=== PATIENT | female | born 1980 | race Caucasian/White ===

== ENCOUNTER → 2020-09-21 15:56 | Outpatient (CLI) | payer BC, SELFPAY | PROVIDERS: PCP Family Medicine; Visit Provider Family Medicine | DX: Z20.828 Contact with and (suspected) exposure to other viral communicable diseases (principal); U07.1 COVID-19 | CPT/HCPCS: U0003 ==

== ENCOUNTER → 2020-11-26 07:51 | Outpatient (CLI) | payer BC, SELFPAY ==
--- NOTE | 2020-11-26 07:59 | MM_ITS ---
PROCEDURE: MM DIG SCREENING MAMM BI W/CAD Digital Breast Tomosynthesis Included CLINICAL INDICATION: SCREENING There is a history of breast cancer in the patient's maternal cousin. COMPARISON: This is a baseline screening exam, patient without complaints TECHNIQUE: Standard CC and MLO images and 3D Tomosynthesis was obtained. R2 CAD reviewed. FINDINGS: Moderate diffuse fibroglandular densities are seen throughout both breast and the findings are bilateral and symmetrical. There is no suspicious lesion in either breast and no suspicious microcalcifications. IMPRESSION: Moderate breast density with no suspicious lesions seen BI-RAD Category: 1 Negative FOLLOW-UP: 1YR 1 Year Follow-up (A letter has been sent to the patient regarding results of the study.) Dictated by: Dr. Fabian Robles MD 11/30/2020 12:36 Dr. Fabian Robles MD in [place] 11/30/2020 12:36
== END ==
PROVIDERS: PCP Family Medicine; Visit Provider Family Medicine
DX: Z12.31 Encounter for screening mammogram for malignant neoplasm of breast (principal); Z80.3 Family history of malignant neoplasm of breast
CPT/HCPCS: 77063; 77067

== ENCOUNTER → 2021-01-19 08:49 | Outpatient (CLI) | payer BC, SELFPAY ==
[2021-01-19 09:18] LABS: Basophils # 0.1 K/mm3 (0-0.2); Basophils % 0.6 % (0.1-2.0); Eosinophils # 0.2 K/mm3 (0.0-0.4); Eosinophils % 2.1 % (0.1-12.0); Hematocrit 40.8 % (37.0-47.0); Hemoglobin 13.2 g/dL (12.2-16.2); Lymphocytes # 3.3 K/mm3 (0.7-4.5); Lymphocytes % 31.9 % (10-50); Mean Corpuscular HGB Conc 32.2 g/dL (31.8-35.4); Mean Corpuscular Volume 80.7 fl (81-99); Mean Platelet Volume 7.9 fl (7.4-10.4); Monocytes # 0.4 K/mm3 (0.1-1.0); Monocytes % 4.3 % (1.7-9.3); Neutrophils # 6.3 K/mm3 (1.8-7.8); Neutrophils % 61.2 % (37.0-80.0); Platelet Count 307 K/mm3 (142-424); Red Blood Count 5.06 M/mm3 (4.20-5.40); Red Cell Distribution Width 13.5 % (11.5-17.5); White Blood Count 10.3 K/mm3 (4.8-10.8)
[2021-01-19 09:45] LABS: Benzodiazepines Screen,Urine Negative ng/ml (<200)
[2021-01-19 09:46] LABS: Amphetamine/Metha Screen,Urine Negative ng/ml (<1000); Chloride 106 mmol/L (98-107); Sodium 140 mmol/L (136-145)
[2021-01-19 09:47] LABS: Barbiturates Screen,Urine Negative ng/ml (<200); Cannabinoid Screen,Urine Negative ng/ml (<50); Potassium 4.2 mmoL/L (3.5-5.1)
[2021-01-19 09:48] LABS: Cocaine Screen,Urine Negative ng/ml (<300); Methadone Screen,Urine Negative ng/ml (<300)
[2021-01-19 09:49] LABS: Alanine Aminotransferase 20 U/L (12-78); Albumin Level 4.3 g/dl (3.5-5.0); Alkaline Phosphatase 95 U/L (38-126); Aspartate Amino Transferase 28 U/L (14-36); Bilirubin,Total 0.7 mg/dl (0.2-1.3); Blood Urea Nitrogen 9 mg/dl (7-17); Estimated Glomerular Filt Rate 92 ml/min (>60); GFR (African American) 112 ML/MIN (>60); HCG Qualitative, Serum Negative (Negative); Opiate Screen,Urine Negative ng/ml (<300)
[2021-01-19 09:50] LABS: Albumin/Globulin Ratio 1.5 (1.1-1.8); Anion Gap 12.2 mEq/L (5-15); Calcium 9.2 mg/dl (8.4-10.2); Carbon Dioxide 26 mmol/L (22.0-30.0); Globulin 2.8 g/dL (1.3-3.2); Glucose 106 mg/dl (74-100); Phencyclidine Screen,Urine Negative ng/ml (<25); Total Protein,Serum 7.1 g/dl (6.3-8.2)
[2021-01-19 10:09] LABS: Coronavirus 19 IgG Antibody Positive (Negative)
[2021-01-19 10:11] LABS: Coronavirus 19 IgM Antibody Positive (Negative)
== END ==
PROVIDERS: Visit Provider Obstetrics & Gynecology
DX: Z01.818 Encounter for other preprocedural examination (principal); Z20.822 Contact with and (suspected) exposure to COVID-19; Z86.16 Personal history of COVID-19; R87.612 Low grade squamous intraepithelial lesion on cytologic smear of cervix (LGSIL)
CPT/HCPCS: 36415; 80053; 80305; 84703; 85025; 86328

== ENCOUNTER 2021-07-14 17:41 | Emergency (ER) | payer BC, SELFPAY ==
[2021-07-14 17:42] VITALS: BP 149/100; PULSE 88; RESP 16; TEMP 36.6; O2SAT 97; BMI 33.2
--- NOTE | 2021-07-14 18:04 | XR_ITS ---
PROCEDURE INFORMATION: Exam: XR Abdomen Exam date and time: 07/14/2021 6:04 PM Age: 40 years old Clinical indication: Abdominal pain; Flank; Right; Additional info: Right flank pain TECHNIQUE: Imaging protocol: XR of the abdomen. Views: Frontal supine view of the abdomen. 1 View. COMPARISON: CR CXR CHEST(2 VIEWS-NOT PORTABLE) 09/24/2017 10:46 PM FINDINGS: Gastrointestinal tract: Normal. No bowel dilation. Bones/joints: Unremarkable. IMPRESSION: No acute findings.
--- NOTE | 2021-07-14 18:08 | HMH.EDGENADL ---
ED Disposition Clinical Impression: Right low back pain Qualifiers: Chronicity: acute Sciatica presence: without sciatica Qualified Code(s): M54.5 - Low back pain Disposition: Home, Self-Care Condition on Discharge: Good Instructions: DI for Low Back Pain, Exercise May Reduce Risk of Low Back Pain Additional Instructions: You have been evaluated for right low back pain. Likely musculoskeletal. Please take anti-inflammatories like ibuprofen. Use heat and lidocaine patches if needed. Follow-up with your primary care doctor in 24 to 48 hours. Return to the emergency department for any new or worsening symptoms, fevers, vomiting, other concerns. Prescriptions: methocarbamoL [Methocarbamol 500mg Tablet] 500 mg PO BID 10 Days #20 tab Transmission Status: [facility] Naproxen [Naproxen 500mg tab] 500 mg PO Q6 #30 tab Transmission Status: [facility] Referrals: Nick Avalos MD [Primary Care Provider] - Time of Disposition: 20:02 - Critical Care Critical Care Time: No Attestation: On 07/14/21, the high probability of a clinically significant, sudden or life threatening deterioration of the following system(s) required my full and direct attention, intervention and personal management. The time I documented below is in addition to time spent performing reported procedures but includes the following listed in this critical care notation. Medical Decision Making - Medical Records Medical records reviewed: Yes: I reviewed the patient's medical records. - Roberto Inquiry Pt receiving controlled substance: No Vital Signs: 07/14/21 17:42 Temperature 98 F Temperature Source Oral Pulse Rate [Radial] 88 Respiratory Rate 16 Blood Pressure [Right Arm] 149/100 H Blood Pressure Mean [Right Arm] 116 Blood Pressure Position [Right Arm] Sitting 02 Sat by Pulse Oximetry 97 - Lab Data Lab Results 07/14/21 18:10: Urine Color Yellow, Urine Appearance Clear, Urine pH 6.0, Ur Specific [place] 1.025, Urine Protein Negative, Urine Glucose (UA) Negative, Urine Ketones Negative, Urine Blood 3+, Urine Nitrate Negative, Urine Bilirubin Negative, Urine Urobilinogen 0.2, Ur Leukocyte Esterase Negative, Urine RBC 10-20, Urine WBC Occasional, Ur Squamous Epith Cells None, Urine Bacteria Trace 07/14/21 18:10: Urine HCG, Qual Negative 07/14/21 18:30: WBC 14.4 H, RBC 5.25, Hgb 14.3, Hct 43.1, MCV 82.2, MCH 27.3, MCHC 33.2, RDW 14.2, Plt Count 381, MPV 8.1, Neut % (Auto) 76.1, Lymph % (Auto) 19.0, [place] % (Auto) 3.5, Eos % (Auto) 0.9, Baso % (Auto) 0.5, Neut # (Auto) 11.0 H, Lymph # (Auto) 2.8, [place] # (Auto) 0.5, Eos # (Auto) 0.1, Baso # (Auto) 0.1 07/14/21 18:30: Sodium 139, Potassium 3.5, Chloride 99, Carbon Dioxide 27, Anion Gap 16.5 H, BUN 10, Creatinine 0.80, Estimated Creat Clear 113, Estimated GFR 79, Est GFR ( Amer) 96, Glucose 113 H, Calcium 9.3, Total Bilirubin 0.3, AST 32, ALT 24, Alkaline Phosphatase 93, Total Protein 7.6, Albumin 4.5, Globulin 3.1, Albumin/Globulin Ratio 1.5 07/14/21 18:30: Serum HCG, Qual Negative Result diagrams: 07/14/21 18:30 07/14/21 18:30 Orders (Tests/Meds): ED MEDICATIONS Discontinued Medications Generic Name Dose Route Start Last Admin Trade Name Freq PRN Reason Stop Dose Admin Ketorolac Tromethamine 15 mg 07/14/21 18:04 07/14/21 18:32 Ketorolac 30mg/Ml Vial IV 07/14/21 18:05 15 mg ONCE ONE Administration Methocarbamol 500 mg 07/14/21 20:13 Methocarbamol 500mg Tablet PO 07/14/21 20:14 ONCE ONE Ondansetron HCl 4 mg 07/14/21 18:04 07/14/21 18:32 Ondansetron 4mg Odt SL 07/14/21 18:05 4 mg ONCE ONE Administration Medical Decision Narrative: In summary this is a 40-year-old female presenting to the emergency department with right-sided flank, low back pain. Patient clinically stable on arrival. Vital signs within normal limits. Most likely diagnosis is musculoskeletal pain. Cannot exclude kidney stone
[2021-07-14 18:13] LABS: Microscopic, Urine URINE MICROSCOPIC (MICROSCOPIC)
[2021-07-14 18:15] LABS: Appearance,Urine CLEAR (Clear); Bilirubin,Urine Negative (Negative); Blood, Urine 3+ (Negative); Color,Urine YELLOW (Yellow); Glucose,Urine (UA) Negative (Negative); Ketones,Urine Negative (Negative); Leukocyte Esterase,Urine Negative (Negative); Nitrate,Urine Negative (Negative); Protein,Urine Negative (Negative); Specific Gravity, Urine 1.025 (1.005-1.030); Urobilinogen,Urine 0.2 EU/dl (0.2)
[2021-07-14 18:27] LABS: Bacteria,Urine Trace /lpf; WBC,Urine Occasional #/hpf (0-3)
[2021-07-14 18:43] LABS: Basophils # 0.1 K/mm3 (0-0.2); Basophils % 0.5 % (0.1-2.0); Eosinophils # 0.1 K/mm3 (0.0-0.4); Eosinophils % 0.9 % (0.1-12.0); Hematocrit 43.1 % (37.0-47.0); Hemoglobin 14.3 g/dL (12.2-16.2); Lymphocytes # 2.8 K/mm3 (0.7-4.5); Mean Corpuscular HGB Conc 33.2 g/dL (31.8-35.4); Mean Corpuscular Hemoglobin 27.3 pg (27.0-31.2); Mean Corpuscular Volume 82.2 fl (81-99); Mean Platelet Volume 8.1 fl (7.4-10.4); Monocytes # 0.5 K/mm3 (0.1-1.0); Monocytes % 3.5 % (1.7-9.3); Neutrophils % 76.1 % (37.0-80.0); Platelet Count 381 K/mm3 (142-424); Red Blood Count 5.25 M/mm3 (4.20-5.40); Red Cell Distribution Width 14.2 % (11.5-17.5); White Blood Count 14.4 K/mm3 (4.8-10.8)
[2021-07-14 18:53] LABS: Alanine Aminotransferase 24 U/L (12-78); Albumin Level 4.5 g/dl (3.5-5.0); Albumin/Globulin Ratio 1.5 (1.1-1.8); Alkaline Phosphatase 93 U/L (38-126); Anion Gap 16.5 mEq/L (5-15); Aspartate Amino Transferase 32 U/L (14-36); Bilirubin,Total 0.3 mg/dl (0.2-1.3); Blood Urea Nitrogen 10 mg/dl (7-17); Calcium 9.3 mg/dl (8.4-10.2); Carbon Dioxide 27 mmol/L (22.0-30.0); Chloride 99 mmol/L (98-107); Creatinine Clearance Estimated 113 mL/min (50-200); Estimated Glomerular Filt Rate 79 ml/min (>60); GFR (African American) 96 ML/MIN (>60); Globulin 3.1 g/dL (1.3-3.2); Glucose 113 mg/dl (74-100); Potassium 3.5 mmoL/L (3.5-5.1); Sodium 139 mmol/L (136-145); Total Protein,Serum 7.6 g/dl (6.3-8.2)
[2021-07-14 19:16] LABS: Urine Pregnancy, HCG Qual. Negative (Negative)
[2021-07-14 19:23] LABS: HCG Qualitative, Serum Negative (Negative)
[2021-07-14 21:09] VITALS: BP 150/90; PULSE 88; RESP 20; TEMP 36.7; O2SAT 99
== END 2021-07-14 21:14 | disposition home or self-care (01) ==
PROVIDERS: Emergency Provider Emergency Medicine; PCP Family Medicine
DX: M54.5 Low back pain (principal); R10.11 Right upper quadrant pain; Z88.2 Allergy status to sulfonamides
CPT/HCPCS: 74018; 80053; 81001; 81025; 84703; 85025; 96374; 96375; 99283

== ENCOUNTER → 2021-08-13 07:26 | Outpatient (CLI) | payer BC, SELFPAY | PROVIDERS: Visit Provider Obstetrics & Gynecology | DX: Z01.818 Encounter for other preprocedural examination (principal); N87.1 Moderate cervical dysplasia; B97.7 Papillomavirus as the cause of diseases classified elsewhere ==

== ENCOUNTER → 2021-08-15 07:31 | Outpatient (CLI) | payer BC, SELFPAY ==
[2021-08-15 08:03] LABS: Basophils # 0.1 K/mm3 (0-0.2); Basophils % 1.1 % (0.1-2.0); Eosinophils # 0.2 K/mm3 (0.0-0.4); Eosinophils % 1.6 % (0.1-12.0); Hemoglobin 13.6 g/dL (12.2-16.2); Lymphocytes # 3.5 K/mm3 (0.7-4.5); Lymphocytes % 31.1 % (10-50); Mean Corpuscular HGB Conc 32.4 g/dL (31.8-35.4); Mean Corpuscular Hemoglobin 26.8 pg (27.0-31.2); Mean Corpuscular Volume 82.7 fl (81-99); Mean Platelet Volume 7.5 fl (7.4-10.4); Monocytes # 0.4 K/mm3 (0.1-1.0); Monocytes % 3.9 % (1.7-9.3); Neutrophils % 62.3 % (37.0-80.0); Platelet Count 368 K/mm3 (142-424); Red Blood Count 5.07 M/mm3 (4.20-5.40); Red Cell Distribution Width 13.8 % (11.5-17.5); White Blood Count 11.2 K/mm3 (4.8-10.8)
[2021-08-15 08:47] LABS: HCG Qualitative, Serum Negative (Negative)
[2021-08-15 08:48] LABS: Alanine Aminotransferase 13 U/L (12-78); Albumin Level 4.2 g/dl (3.5-5.0); Albumin/Globulin Ratio 1.6 (1.1-1.8); Alkaline Phosphatase 73 U/L (38-126); Anion Gap 11.8 mEq/L (5-15); Aspartate Amino Transferase 19 U/L (14-36); Bilirubin,Total 0.4 mg/dl (0.2-1.3); Calcium 9.1 mg/dl (8.4-10.2); Carbon Dioxide 29 mmol/L (22.0-30.0); Chloride 104 mmol/L (98-107); Globulin 2.6 g/dL (1.3-3.2); Glucose 101 mg/dl (74-100); Potassium 3.8 mmoL/L (3.5-5.1); Sodium 141 mmol/L (136-145); Total Protein,Serum 6.8 g/dl (6.3-8.2)
[2021-08-15 10:04] LABS: Blood Urea Nitrogen 8 mg/dl (7-17)
[2021-08-15 18:47] LABS: Amphetamine/Metha Screen,Urine Negative ng/ml (<1000); Barbiturates Screen,Urine Negative ng/ml (<200); Benzodiazepines Screen,Urine Negative ng/ml (<200); Cannabinoid Screen,Urine Negative ng/ml (<50); Cocaine Screen,Urine Negative ng/ml (<300); Methadone Screen,Urine Negative ng/ml (<300); Opiate Screen,Urine Negative ng/ml (<300); Phencyclidine Screen,Urine Negative ng/ml (<25)
== END ==
PROVIDERS: Visit Provider Obstetrics & Gynecology
DX: Z01.812 Encounter for preprocedural laboratory examination (principal); Z11.52 Encounter for screening for COVID-19; R87.612 Low grade squamous intraepithelial lesion on cytologic smear of cervix (LGSIL)
CPT/HCPCS: 36415; 80053; 80305; 84703; 85025; C9803; U0003; U0005

== ENCOUNTER 2021-08-16 09:27 | Day surgery (SDC) | payer BC, SELFPAY ==
[2021-08-10 15:16] VITALS: BMI 36.1
[2021-08-16 10:29] VITALS: BP 126/82; PULSE 60; RESP 16; TEMP 36.4; O2SAT 100
--- NOTE | 2021-08-16 11:44 | HMH.ANESCL ---
[facility] Anesthesia Checklist - Patient Identification Patient Identification: Arm Band, Verbal (Name & ) - Structural Data Admitted From: Home Planned Operative Procedure/s: LEEP Consent for Planned Operative Procedure(s) Verified: Yes Verified Documents: Surgical Consent - NPO Status Verified Time NPO: 00:00 - Chart Verification Results Verified: HCG - Additional verifications Anesthesia Reactions: No Hx Blood Transfusions: No Blood Transfusion Reaction: No - Cardiovascular Assessment Heart Sounds: S1 & S2 Pulse Rhythm: Regular - Airway Assessment C-Spine Mobility Assessed: Yes TMJ Mobility Assessed: Yes Dentition: Good Dentition - Neurological Assessment Level of Consciousness: Awake, Alert, Appropriate - Anesthesia Plan Anesthesia Risk discussed: Yes ASA Class: II Anesthesia Type: MAC [facility] History Medical History: Denies:: Cancer, Diabetes Mellitus Type 1, Diabetes Mellitus Type 2, MRSA, Seizures *Have you ever received a pneumonia vaccine?: Yes *Have you received a flu vaccine this season?: Yes Other Medical History: Denies: Blood Transfusion Reaction Anesthesia experience/problems:: No issues Other Surgeries: Yes: Appendectomy Amputation: No Fractures: No - *Social History Last grade of school completed: Some college Smoking Status: Never smoker Alcohol Intake: current Alcohol Intake Frequency:: holidays/special occasions only Substance Use Type: denies use *Occupational Status:: employed Housing: house Household Members: spouse, children *Travel in the last 8 weeks: None Family Hx:: Cancer, Diabetes, Hyperlipidemia, Hypertension
--- NOTE | 2021-08-16 12:02 | HMH.OPNOTE ---
Date of procedure: 08/16/21 Pre-op Diagnosis:: MAXINE 2 Post-op Diagnosis:: same Procedure performed:: Loop Electro-surgical Excisional Procedure Surgeon:: Kaity Gore MD [employer] REDEVELOPMENT MANAGER:: Other Anesthesia: MAC Estimated blood loss (mL): 5 Operative findings:: grossly normal pelvic anatomy Operative note:: The patient was taken to the operating room and general anesthesia administered without difficulty. She was prepped & draped in lithotomy position. Coated instruments were used to prevent electrical conductivity through retractors; a coated speculum was placed in the vagina and the cervix positioned midline. The cervical cone was excised using a C-LETZ loop measuring 12mm x 10mm and excised in a single piece. Sharp endocervical curettage was performed and sent as a seperate specimen. The remaining ectocervix surface was cauterized using a bovie ball as treatment for any residual dysplasia. The endocervical margins were cauterized using the bovie ball for hemostasis, with care taken to avoid cautery to the endocervical canal. The endocervical curette was placed in the canal to ensure patency. Monsel's solution was placed over the surgical site for additional hemostasis. Once hemostasis was achieved, all instruments were removed from the vagina. All counts were correct. The patient was taken out of lithotomy position, awakened from anesthesia and taken to the PACU in stable condition. EBL: 5cc Condition: stable Disposition: PACU Specimens:: 1. Cervical cone 2. Endocervical curettings Complications:: none
[2021-08-16 12:07] VITALS: BP 123/70; PULSE 75; RESP 18; TEMP 36.1; O2SAT 94
[2021-08-16 12:30] VITALS: BP 160/102; PULSE 64; RESP 18; O2SAT 100
[2021-08-16 12:37] VITALS: BP 157/96; PULSE 65; RESP 18; O2SAT 99
== END 2021-08-16 12:40 | disposition home or self-care (01) ==
LOC: OR 09:30
PROVIDERS: PCP Family Medicine; Visit Provider Obstetrics & Gynecology
PROC: (CPT 57461; principal; 2021-08-16 11:00)
DX: D06.9 Carcinoma in situ of cervix, unspecified; Z90.49 Acquired absence of other specified parts of digestive tract; Z80.9 Family history of malignant neoplasm, unspecified; Z83.3 Family history of diabetes mellitus; Z82.49 Family history of ischemic heart disease and other diseases of the circulatory system; Z83.438 Family history of other disorder of lipoprotein metabolism and other lipidemia; K21.9 Gastro-esophageal reflux disease without esophagitis; Z88.2 Allergy status to sulfonamides; I10 Essential (primary) hypertension; Z79.899 Other long term (current) drug therapy
CPT/HCPCS: 57461; 96374; J2405

== ENCOUNTER 2024-02-21 11:48 | Emergency (ER) | payer BC, SELFPAY ==
--- NOTE | 2024-02-21 11:47 | ECG_ITS ---
APPROVED REPORT Exam: Resting ECG HR:56 bpm ECG Measurements Heart Rate 56 AXES PA 155 P 30 QRSd 87 QRS 2 QT 408 T 16 QTc 400 Conclusion SINUS BRADYCARDIA WITH MARKED SINUS ARRHYTHMIA LOW QRS VOLTAGE IN PRECORDIAL LEADS [QRS DEFLECTION < 1.0 mV IN CHEST LEADS] Nonspecific ST/T wave changes Electronically signed by : BELLA PLEITEZ, 02/21/2024 13:47:52
[2024-02-21 11:49] VITALS: BP 118/74; PULSE 72; RESP 12; TEMP 36.6; O2SAT 100; BMI 24.1
--- NOTE | 2024-02-21 12:02 | HMH.EDGENADL ---
Discharge Plan Disposition Patient Disposition: Home, Self-Care Condition: Good Prescriptions Prescriptions: No Action losartan 25 mg tablet 25 mg PO DAILY omeprazole 20 mg capsule,delayed release(DR/EC) 20 mg PO DAILY hydrochlorothiazide 25 mg tablet 25 mg PO DAILY methocarbamol 500 MG tablet 500 mg PO BID PRN (Reason: spasms) naproxen 500 MG tablet 500 mg PO Q6 Qty: 30 0RF Referrals Follow up/Referrals: Provider,Referral, MD [Referring] - See instructions Activity Restrictions/Add. Instructions Additional Instructions/Restrictions: You were evaluated in the emergency department today. Please follow-up with your primary care provider. Return to the emergency department for new or worsening symptoms. Clinical Impressions Clinical Impression: Chest pain Stand Alone Forms Stand Alone Forms: Work/School Release Instructions Patient Instructions: DI for Atypical Chest Pain Discharge ED Provider: Ellen Terry General Adult HPI General Chief complaint: Chest Pain Stated complaint: chest pain Time Seen by Provider: 02/21/24 11:53 History of Present Illness HPI narrative: This patient is a 43-year-old female with a history of hypertension as well as MAXINE s/p LEEP presenting to the emergency department for evaluation with concern for 2 episodes of chest pain that happened over the last week. She states that a week ago, she was cleaning out a toxic rate around 4:00 in the morning when she felt she had pulled a muscle in her chest. She stated that it hurt right in the center of her chest radiating to her back, and was very severe. She took a muscle relaxant and went back to bed, and when she woke up she was fine. States she had been okay but then last night she got into an argument with a friend and was driving home when she experienced pinpricking sensation in the center of her chest as well. Given this, she followed up with her primary care provider today to make sure things okay. Her primary care provider checked an EKG and noted that it was fine but she sent her here for further evaluation. Patient states that she does not have any symptoms at this time. She is feeling fine. She notes her primary care provider sent her for troponins. No other concerns noted. Related Data Home Medications Medication Instructions Recorded Confirmed omeprazole 20 mg capsule,delayed 20 mg PO DAILY ACID REFLUX 12/13/20 10/17/22 release hydrochlorothiazide 25 mg tablet 25 mg PO DAILY HTN 07/07/21 10/17/22 methocarbamol 500 mg tablet 500 mg PO BID PRN spasms 08/10/21 10/17/22 losartan 25 mg tablet 25 mg PO DAILY 10/17/22 10/17/22 Previous Rx's Medication Instructions Recorded naproxen 500 mg tablet 500 mg PO Q6 pain #30 tabs 07/14/21 Allergies Allergy/AdvReac Type Severity Reaction Status Date / Time Sulfa (Sulfonamide Allergy Mild I-RASH Verified 10/17/22 09:47 Antibiotics) [SULFA (SULFONAMIDE ANTIBIOTICS)] [facility] Disclaimer: The information contained in this section may have been updated after the patient was seen, as this information can be updated by other users. Medical History HBP (high blood pressure) High risk HPV infection MAXINE II (cervical intraepithelial neoplasia II) LGSIL on Pap smear of cervix Surgical History History of laparoscopic appendectomy H/O LEEP Social History Smoking Status: Never smoker alcohol intake: current substance use type: denies use current occupational status: employed Travel in the last 8 weeks: None household members: spouse and children housing: house current occupational exposures/hazards: No caffeine: Yes ROS Obtained: Yes All systems reviewed & no additional complaints except as documented Physical Exam General General appearance: alert and in no apparent distress Head Head exam: atraumatic and normocephalic Eye Eye exam: Present normal appearance, PERRL and EOMI ENT ENT exam: Present normal exam, normal oropharynx, mucous membranes moist and normal external ear exam Neck Neck exam: Present normal inspection, full ROM and trachea midline; Absent tenderness Chest Chest inspection: Present normal inspection and symmetric chest wall rise; Absent tenderness Respiratory Respiratory exam: Present normal lung sounds bilaterally; Absent respiratory distress, wheezes, stridor or accessory muscle use Cardiovascular Cardiovascular exam: Present regular rate and normal rhythm Abdominal Exam Abdominal exam: Present soft; Absent distention, tenderness or guarding Extremities Exam Extremities exam: Present normal inspection, full ROM and normal capillary refill; Absent tenderness or edema Back Exam Back exam: Present normal inspection and full ROM; Absent tenderness Neurological Exam Neurological exam: Present alert, oriented X3, CN II-XII intact and normal gait; Absent motor sensory deficit Psychiatric Psychiatric exam: Present normal affect and normal mood Skin Skin exam: Present warm and dry Medical Decision Making Medical Records Medical records reviewed: Yes I reviewed the patient's medical records. Roberto Inquiry Pt receiving controlled substance: No Vital Signs: 02/21/24 11:49 02/21/24 12:30 02/21/24 13:00 Temperature 97.9 F Temperature Source Oral Pulse Rate 69 71 Pulse Rate [Left Radial] 72 Respiratory Rate 12 12 9 L Blood Pressure 117/77 134/89 Blood Pressure [Right Arm] 118/74 Blood Pressure Mean 90 104 Blood Pressure Mean [Right Arm] 88 02 Sat by Pulse Oximetry 100 98 100 Oxygen Delivery Method Room Air 02/21/24 13:13 Temperature 97.9 F Temperature Source Pulse Rate 64 Pulse Rate [Left Radial] Respiratory Rate 13 Blood Pressure 134/89 Blood Pressure [Right Arm] Blood Pressure Mean Blood Pressure Mean [Right Arm] 02 Sat by Pulse Oximetry Oxygen Delivery Method Lab Data Lab results reviewed: Yes I reviewed the patient's lab results. Lab Results 02/21/24 11:58: WBC 11.5 H, RBC 4.91, Hgb 12.3, Hct 38.0, MCV 77.3 L, MCH 25.0 L, MCHC 32.4, RDW 16.5, Plt Count 335, MPV 7.9, Neut % (Auto) 68.4, Lymph % (Auto) 24.8, [place] % (Auto) 4.4, Eos % (Auto) 1.7, Baso % (Auto) 0.6, Neut # (Auto) 7.9 H, Lymph # (Auto) 2.9, [place] # (Auto) 0.5, Eos # (Auto) 0.2, Baso # (Auto) 0.1, Sodium 138, Potassium 3.1 L, Chloride 104, Carbon Dioxide 27, Anion Gap 10.1, BUN 10, Creatinine 0.90, Estimated Creat Clear 83, Estimated GFR 68, Est GFR ( Amer) 82, Glucose 117 H, Calcium 9.0, Total Bilirubin 0.6, AST 22, ALT 18, Alkaline Phosphatase 77, Troponin I < 0.01, Total Protein 6.8, Albumin 4.1, Globulin 2.7, Albumin/Globulin Ratio 1.5, Lipase 81 02/21/24 11:58 04/18 11:58 Orders (Tests/Meds): ORDERS Category Date Time Status Complete Blood Count Auto Diff Stat Lab 02/21/24 11:58 Completed Comprehensive Metabolic Panel Stat Lab 18 11:58 Completed Lipase Stat Lab 18 11:58 Completed Trop I [Troponin I] Stat Lab 02/21/24 11:58 Completed ECG Data Tracing #1: I reviewed this ECG and interpreted as documented below: Sinus bradycardia with a ventricular rate of [address] changes concerning for ischemia. Nonspecific ST/T wave changes. Normal intervals. No prior EKG for comparison. ECG initial impression date: 02/21/24 ECG initial impression time: 11:49 HEART Score History (anamnesis): Slightly suspicious ECG: Normal Age: <45 years Risk factors: 1-2 risk factors Troponin: </= normal limit HEART Score: 1 Medical Decision Narrative: In summary, this patient is a 43-year-old female presenting to the Emergency Department for evaluation of episodes of chest pains that have happened over the last week, but is asymptomatic today. Differential diagnoses considered include but are not limited to ACS, dysrhythmia, stress, anxiety, GERD, costochondritis, pleurisy, pancreatitis. Ruling out the most morbid conditions drove assessment. On exam, the patient is well-appearing. She is mildly hypertensive with systolics in the 160s, but otherwise she is not tachycardic or hypoxic. She is PERC negative for pulmonary embolus. Workup included CBC, CMP, troponin, lipase, and EKG. EKG obtained is reassuring. I considered administering medications or obtaining imaging, however patient is asymptomatic at this time as I do not feel these things are indicated. On reassessment, the patient is resting comfortably with reassuring vital signs on cardiac telemetry. Workup is reassuring with negative troponin. Overall since she is not having chest pain right now workup and exam are reassuring, I feel that she is appropriate for discharge with continued outpatient follow-up. I advised that there is a lot of different potential causes of atypical chest pain, and advised that she keep track of her symptoms and see if she can identify any triggers. I advised that she follow-up very closely with her primary care provider and gave her strict return precautions. Patient was discharged after all questions were answered. Critical Care Critical Care Time Critical Care Time: No
[2024-02-21 12:10] LABS: Basophils # 0.1 K/mm3 (0-0.2); Basophils % 0.6 % (0.1-2.0); Eosinophils # 0.2 K/mm3 (0.0-0.4); Eosinophils % 1.7 % (0.1-12.0); Hemoglobin 12.3 g/dL (12.2-16.2); Lymphocytes # 2.9 K/mm3 (0.7-4.5); Lymphocytes % 24.8 % (10-50); Mean Corpuscular HGB Conc 32.4 g/dL (31.8-35.4); Mean Corpuscular Volume 77.3 fl (81-99); Mean Platelet Volume 7.9 fl (7.4-10.4); Monocytes # 0.5 K/mm3 (0.1-1.0); Monocytes % 4.4 % (1.7-9.3); Neutrophils # 7.9 K/mm3 (1.8-7.8); Neutrophils % 68.4 % (37.0-80.0); Platelet Count 335 K/mm3 (142-424); Red Blood Count 4.91 M/mm3 (4.20-5.40); Red Cell Distribution Width 16.5 % (11.5-17.5); White Blood Count 11.5 K/mm3 (4.8-10.8)
[2024-02-21 12:15] LABS: Chloride 104 mmol/L (98-107); Potassium 3.1 mmoL/L (3.5-5.1); Sodium 138 mmol/L (136-145)
[2024-02-21 12:17] LABS: Alanine Aminotransferase 18 U/L (12-78); Aspartate Amino Transferase 22 U/L (14-36); Blood Urea Nitrogen 10 mg/dl (7-17); Creatinine Clearance Estimated 83 mL/min (50-200); Estimated Glomerular Filt Rate 68 ml/min (>60); GFR (African American) 82 ML/MIN (>60)
[2024-02-21 12:18] LABS: Albumin Level 4.1 g/dl (3.5-5.0); Albumin/Globulin Ratio 1.5 (1.1-1.8); Alkaline Phosphatase 77 U/L (38-126); Anion Gap 10.1 mEq/L (5-15); Bilirubin,Total 0.6 mg/dl (0.2-1.3); Carbon Dioxide 27 mmol/L (22.0-30.0); Globulin 2.7 g/dL (1.3-3.2); Glucose 117 mg/dl (74-100); Lipase 81 U/L (23-300); Total Protein,Serum 6.8 g/dl (6.3-8.2)
[2024-02-21 12:30] VITALS: BP 117/77; PULSE 69; RESP 12; O2SAT 98
[2024-02-21 12:51] LABS: Troponin I < 0.01 ng/ml (0.00-0.034)
[2024-02-21 13:00] VITALS: BP 134/89; PULSE 71; RESP 9; O2SAT 100
[2024-02-21 13:13] VITALS: BP 134/89; PULSE 64; RESP 13; TEMP 36.6
== END 2024-02-21 13:15 | disposition home or self-care (01) ==
PROVIDERS: Emergency Provider Emergency Medicine; PCP Family Medicine
DX: R07.89 Other chest pain (principal); E87.6 Hypokalemia; R00.1 Bradycardia, unspecified; I10 Essential (primary) hypertension
CPT/HCPCS: 80053; 83690; 84484; 85025; 93005; 99284

== ENCOUNTER 2024-06-17 08:45 | Outpatient (CLI) | payer BC, SELFPAY ==
--- NOTE | 2024-06-17 08:48 | MM_ITS ---
PROCEDURE INFORMATION: Exam: MG Bilateral Screening 3D Mammography Exam date and time: 06/17/2024 8:39 AM Age: 43 years old Clinical indication: Screening. No family history of breast cancer. TECHNIQUE: Imaging protocol: Bilateral Screening tomosynthesis and 2D mammography including computer-aided detection (CAD) when performed. COMPARISON: MG MM DIG SCREENING MAMM BI W/CAD 11/26/2020 8:00 AM FINDINGS: MAMMOGRAPHY: Breast composition: There are scattered areas of fibroglandular density. Mass: No suspicious mass. Architectural distortion: None. Calcifications: No suspicious calcifications. Asymmetric density: None. Skin thickening: None. Axillary adenopathy: None. IMPRESSION: No mammographic evidence of malignancy. Annual screening is recommended unless otherwise clinically indicated. ASSESSMENT: BI-RADS Category 1: Negative
== END 2024-06-17 23:59 | disposition home or self-care (01) ==
LOC: RAD 08:46
PROVIDERS: PCP Nurse Practitioner; Visit Provider Nurse Practitioner
DX: Z12.39 Encounter for other screening for malignant neoplasm of breast (principal)
CPT/HCPCS: 77063; 77067

== ENCOUNTER 2024-06-18 18:41 | Outpatient (CLI) | payer BC, SELFPAY ==
[2024-06-18 19:25] LABS: Basophils # 0.1 K/mm3 (0-0.2); Basophils % 0.8 % (0.1-2.0); Eosinophils # 0.2 K/mm3 (0.0-0.4); Hematocrit 35.9 % (37.0-47.0); Lymphocytes # 2.6 K/mm3 (0.7-4.5); Lymphocytes % 33.7 % (10-50); Mean Corpuscular HGB Conc 33.3 g/dL (31.8-35.4); Mean Corpuscular Volume 80.9 fl (81-99); Monocytes # 0.4 K/mm3 (0.1-1.0); Monocytes % 4.5 % (1.7-9.3); Neutrophils # 4.5 K/mm3 (1.8-7.8); Neutrophils % 58.9 % (37.0-80.0); Platelet Count 333 K/mm3 (142-424); Red Blood Count 4.43 M/mm3 (4.20-5.40); Red Cell Distribution Width 16.5 % (11.5-17.5); White Blood Count 7.7 K/mm3 (4.8-10.8)
[2024-06-18 19:39] LABS: Alanine Aminotransferase 18 U/L (12-78); Albumin Level 3.6 g/dl (3.5-5.0); Albumin/Globulin Ratio 1.3 (1.1-1.8); Alkaline Phosphatase 73 U/L (38-126); Anion Gap 8.6 mEq/L (5-15); Aspartate Amino Transferase 27 U/L (14-36); Bilirubin,Total 0.6 mg/dl (0.2-1.3); Blood Urea Nitrogen 12 mg/dl (7-17); Calcium 8.9 mg/dl (8.4-10.2); Carbon Dioxide 27 mmol/L (22.0-30.0); Chloride 107 mmol/L (98-107); Cholesterol 182 mg/dl (140-200); Estimated Glomerular Filt Rate 78 ml/min (>60); GFR (African American) 94 ML/MIN (>60); Globulin 2.7 g/dL (1.3-3.2); Glucose 96 mg/dl (74-100); HDL Cholesterol 46 mg/dl (40-60); Potassium 3.6 mmoL/L (3.5-5.1); Sodium 139 mmol/L (136-145); Total Protein,Serum 6.3 g/dl (6.3-8.2); Triglycerides 66 mg/dl (30-150); VLDL Cholesterol 13 mg/dL (0-40)
[2024-06-18 19:50] LABS: Direct LDL Cholesterol 112.91 mg/dL (100-129)
[2024-06-18 20:09] LABS: Thyroid Stimulating Hormone 1.44 uIU/mL (0.465-4.68)
[2024-06-18 20:28] LABS: Vitamin B12 375 pg/mL (239-931)
[2024-06-18 21:11] LABS: Hemoglobin A1C 5.6 % (4.0-6.0)
[2024-06-18 22:29] LABS: Creatinine,Urine Random 472 mg/dL (Not Estab.); Microalbumin/Creatinine Ratio 6.3
== END 2024-06-18 23:59 | disposition home or self-care (01) ==
LOC: LAB.DROPOF 18:43
PROVIDERS: PCP Nurse Practitioner; Visit Provider Nurse Practitioner
DX: I10 Essential (primary) hypertension (principal); Z13.1 Encounter for screening for diabetes mellitus; Z13.220 Encounter for screening for lipoid disorders; K21.9 Gastro-esophageal reflux disease without esophagitis
CPT/HCPCS: 80050; 80053; 80061; 82043; 82570; 82607; 83036; 84443; 85025

== ENCOUNTER 2024-06-18 18:55 | Outpatient (CLI) | payer BC, SELFPAY | END 2024-06-18 23:59 | disposition home or self-care (01) | LOC: LAB.DROPOF 18:57 | PROVIDERS: PCP Nurse Practitioner; Visit Provider Nurse Practitioner | DX: I10 Essential (primary) hypertension (principal); K21.9 Gastro-esophageal reflux disease without esophagitis; Z13.1 Encounter for screening for diabetes mellitus; Z13.220 Encounter for screening for lipoid disorders ==

== ENCOUNTER 2024-08-18 09:14 | Day surgery (SDC) | payer BC, SELFPAY ==
[2024-08-14 16:30] VITALS: BMI 35322.9
[2024-08-18] MEDS: LACTATED RINGERS 1000ML 1,000 ML 25 ML IV (09:33)
[2024-08-18 09:39] VITALS: BP 125/78; PULSE 84; RESP 18; TEMP 36.9; O2SAT 100
--- NOTE | 2024-08-18 09:40 | P.PNANES_ITS ---
[facility] Disclaimer: The information contained in this section may have been updated after the patient was seen, as this information can be updated by other users. 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 Surgical History History of laparoscopic appendectomy H/O LEEP Family History Other Family history of breast cancer Family history of colon cancer Family history of non-Hodgkin lymphoma Social History Smoking Status: Never smoker alcohol intake: current alcohol intake frequency: holidays/special occasions only substance use type: denies use current occupational status: employed Travel in the last 8 weeks: None household members: spouse and children housing: house current occupational exposures/hazards: No caffeine: Yes [facility] Anesthesia Checklist Patient Identification Patient Identification: Arm Band and Verbal (Name & ) Structural Data Admitted From: Home Planned Operative Procedure/s: Colonoscopy Consent for Planned Operative Procedure(s) Verified: Yes Verified Documents: Surgical Consent and History and Physical NPO Status Verified Time NPO: 04:00 Chart Verification Results Verified: CBC, ECG and HCG Additional verifications Patient : No Anesthesia Reactions: No Hx Blood Transfusions: No Blood Transfusion Reaction: No Previous Colonoscopy: Yes Cardiovascular Assessment Heart Sounds: S1 & S2 Pulse Rhythm: Irregular Peripheral Edema: No Airway Assessment Mallampati Score:: Class II C-Spine Mobility Assessed: Yes TMJ Mobility Assessed: Yes Dentition: Good Dentition Neurological Assessment Level of Consciousness: Awake, Alert, Appropriate and Follows Commands Hx Seizures: No Numbness or tingling in extremities: No Anesthesia Plan Anesthesia Risk discussed: Yes Anesthesia Plan: Verified ASA Class: II Anesthesia Type: MAC
[2024-08-18 09:46] LABS: Urine Pregnancy, HCG Qual. Negative (Negative)
--- NOTE | 2024-08-18 10:06 | P.HP_ITS ---
History of Present Illness *Admission Date: 08/18/24 *Reason for visit:: Screening *History of present illness: Mrs. Xiong is a 43-year-old female who is here for colonoscopy secondary to family history. The examination is deemed medically necessary for colonoscopy. The patient has been seen, interviewed and examined prior to the procedure by both myself and the anesthesia provider. [facility] Disclaimer: The information contained in this section may have been updated after the patient was seen, as this information can be updated by other users. 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 Surgical History History of laparoscopic appendectomy H/O LEEP Family History Other Family history of breast cancer Family history of colon cancer Family history of non-Hodgkin lymphoma Social History Smoking Status: Never smoker alcohol intake: current alcohol intake frequency: holidays/special occasions only substance use type: denies use current occupational status: employed Travel in the last 8 weeks: None household members: spouse and children housing: house current occupational exposures/hazards: No caffeine: Yes Other Medical History Have you received the Flu Vaccine for this season: Yes Have you received the Pneumonia Vaccine: No Review of Systems Review of Systems Review of systems (narrative): Negative *Cardiovascular Comments: Negative *Gastrointestinal Comments: Negative *Genitourinary Comments: Negative *Musculoskeletal Comments: Negative *Neurologic Comments: Negative Meds Home Medications and Allergies Home Medications ?Medication ?Instructions ?Recorded ?Confirmed ?Type omeprazole 20 mg capsule,delayed 20 mg PO DAILY ACID REFLUX 12/13/20 08/18/24 History release hydrochlorothiazide 25 mg tablet 25 mg PO DAILY HTN #30 tabs 07/02/24 08/18/24 Rx losartan 25 mg tablet 25 mg PO DAILY #30 tabs 07/02/24 08/18/24 Rx New Prescriptions to Start Prescriptions: Allergies Allergy/AdvReac Type Severity Reaction Status Date / Time Sulfa (Sulfonamide Allergy Mild I-RASH Verified 08/18/24 09:38 Antibiotics) [SULFA (SULFONAMIDE ANTIBIOTICS)] Exam Data for Last 24 hours Vital signs and Labs for Last 24 Hours: Temp Pulse Resp BP Pulse Ox O2 Del Method 98.4 F 84 18 125/78 100 Room Air 08/18/24 09:39 08/18/24 09:39 08/18/24 09:39 08/18/24 09:39 08/18/24 09:39 08/18/24 09:39 Laboratory Results - last 24 hr 08/18/24 09:28: Urine HCG, Qual Negative *Routine HEENT Exam Head: Present normocephalic Eye: Present EOMI and PERRL ENT: Present mucous membranes moist *Routine Neck Exam Neck: Present supple *Routine Respiratory Exam Respiratory: Present CTA bilaterally *Routine Cardiovascular Exam Cardiovascular: Present RRR *Routine Abdominal Exam Abdominal: Present soft and normoactive bowel sounds; Absent tenderness *Routine Rectal Exam Rectal:: deferred *Routine Genitalia Exam Genitalia:: deferred *Routine Extremities Exam Extremities: Absent cyanosis, clubbing or edema *Routine Skin Exam Skin: Present warm; Absent rash *Routine Neurological Exam Neurological: Present alert and oriented X3 Assessment and Plan *Assessment and plan (1) Screening for colon cancer: Status: Acute Category: Medical Code(s): Z12.11 - Encounter for screening for malignant neoplasm of colon (2) Family history of colon cancer: Status: Acute Category: Medical Code(s): Z80.0 - Family history of malignant neoplasm of digestive organs Plan A/P: 1. Screening/family history is the preprocedural diagnosis. The patient will be anesthetized/sedated using MAC sedation. The patient has been seen and examined. Cardiac and lung assessment prior to the examination is stable. Proceed with planned colonoscopy
[2024-08-18 10:12] VITALS: O2SAT 96
--- NOTE | 2024-08-18 10:14 | P.PCN_ITS ---
[facility] Procedure Note Date: 08/18/24 Time: 10:29 Procedure Note:: Colonoscopy Procedure Report: Colonoscopy with cold snare polypectomy Endoscopist: Anthony Mehta II, MD Referring physician: DEO Gandhi Date of Procedure: August 18, 2024 Equipment: Olympus 190 variable stiffness pediatric colonoscope Sedation: MAC sedation Indication: Mrs. Xiong is a 43-year-old female who is here for screening colonoscopy. She does state that her grandmother had colon cancer in her 60s or 70s. The patient reports no abdominal pain, weight loss, change in her bowel habits or rectal bleeding. Her last colonoscopy was more than 10 years ago. Procedure: Prior to the procedure, a history and physical exam was performed, and patient's medications and allergies were reviewed. The risks, benefits and alternatives of the sedation and procedure were discussed with the patient. All questions were answered and informed consent was obtained. The patient was brought to the procedure room. Patient identification and proposed procedure were verified by the physician and the nurse. The patient was placed in a left lateral decubitus position and the scope was passed under direct vision. Throughout the procedure, the patient's blood pressure, pulse, and oxygen saturations were monitored continuously. The colonoscopy was accomplished without difficulty. The patient tolerated the procedure well. Findings: On digital rectal examination there was normal rectal tone. There were no external hemorrhoids. The colonoscope was introduced through the anal canal to the rectum and advanced to the cecum. The ileocecal valve and appendiceal orifice were identified. The scope was advanced a short distance into the ileum which appeared grossly normal. The scope was then withdrawn into the colon. The cecum, ascending, transverse, descending, sigmoid and rectum were grossly normal. There was a 3 mm flat polyp in the distal rectum removed via cold snare polypectomy. There were no other mucosal abnormalities identified. Upon retroflexion within the rectum there were grade 1 internal hemorrhoids.The preparation was excellent throughout with Flat Top Preparation Score of 9. The cecal time was 10 minutes. Impression: 1. Diminutive 3 mm rectal polyp Plan: I will follow-up the polyp histology recommend surveillance colonoscopy in 7 to 10 years. Those persons that constitute having a stronger family history of colorectal cancer are those with a first-degree relative (parent, sibling, or child) diagnosed with colon cancer when they were younger than 50, or if more than one first-degree relative is affected. It is in these persons, that we recommend surveillance colonoscopy every 5 years. Persons that have a second- degree family member greater than 60 years of age at the time of their diagnosis are not deemed to be at greater risk because most colon cancers are sporadic (environmental and other factors) and are not hereditary.
[2024-08-18 10:32] VITALS: BP 137/85; PULSE 83; RESP 18; TEMP 36.6; O2SAT 97
[2024-08-18 10:42] VITALS: BP 126/88; PULSE 82; RESP 16; O2SAT 100
[2024-08-18 10:52] VITALS: BP 120/81; PULSE 64; RESP 16; O2SAT 100
[2024-08-18 11:02] VITALS: BP 129/73; PULSE 66; RESP 18; O2SAT 100
== END 2024-08-18 11:05 | disposition home or self-care (01) ==
PROVIDERS: PCP Nurse Practitioner; Visit Provider Internal Medicine Gastroenterology
PROC: (CPT 45385; principal; 2024-08-18 10:30)
DX: K63.5 Polyp of colon (principal); K64.0 First degree hemorrhoids; Z12.11 Encounter for screening for malignant neoplasm of colon; Z80.0 Family history of malignant neoplasm of digestive organs
CPT/HCPCS: 45385; 81025; J7120